=== PATIENT | female | born 1945 | race Caucasian/White ===

== ENCOUNTER 2016-09-20 11:17 | Outpatient (CLI) | payer MEDICARE, OTHER | END 2016-09-20 11:18 | disposition home or self-care (01) | DX: E78.00 Pure hypercholesterolemia, unspecified (principal) ==

== ENCOUNTER 2016-11-21 10:33 | Outpatient (CLI) | payer MEDICARE, OTHER | END 2016-11-21 10:34 | disposition home or self-care (01) | DX: I10 Essential (primary) hypertension (principal) ==

== ENCOUNTER 2016-12-15 14:20 | Outpatient (CLI) | payer MEDICARE, OTHER | END 2016-12-15 14:21 | disposition home or self-care (01) | DX: Z12.31 Encounter for screening mammogram for malignant neoplasm of breast (principal); Z85.3 Personal history of malignant neoplasm of breast ==

== ENCOUNTER 2017-02-01 04:32 | Emergency (ER) | payer MEDICARE, OTHER ==
[2017-02-01] MEDS ORDERED: ONDANSETRON 4 MG/2 ML VIAL IVP STA (04:47)
[2017-02-01] MEDS ORDERED: SODIUM CHLORIDE 0.9% 1,000 ML IV ONE ×3 (04:47→06:46)
[2017-02-01] MEDS ORDERED: ONDANSETRON 4 MG/2 ML VIAL ONE (04:50)
[2017-02-01 05:32] LABS: BASOPHILS % (AUTO) 0.1 %; EOSINOPHILS % (AUTO) 0.1 %; HCT - HEMATOCRIT 39.3 % (37.0-47.0); HGB - HEMOGLOBIN 13.1 g/dL (12.0-16.0); LYMPHOCYTES % (AUTO) 45.7 %; MEAN CORPUSCULAR HEMOGLOBIN 32.3 pg (27.0-31.0); MEAN CORPUSCULAR HGB CONC 33.3 g/dL (32.0-36.0); MEAN PLATELET VOLUME 8.5 fL (7.9-10.8); MONOCYTES % (AUTO) 2.6 %; NEUTROPHILS % (AUTO) 51.5 %; RED BLOOD COUNT 4.06 10^6/uL (4.20-5.40); RED CELL DISTRIBUTION WIDTH 13.9 % (12.0-15.0); UNCORRECTED WHITE BLOOD COUNT 26.9 x10^3/uL; WHITE BLOOD COUNT 26.9 x10^3/uL (4.8-10.8)
[2017-02-01 05:41] LABS: BILIRUBIN,TOTAL 0.5 mg/dL (0.2-1.0); CALCIUM 9.9 mg/dL (8.5-10.3); CREATININE 0.8 mg/dL (0.4-1.0); POTASSIUM 3.6 mmol/L (3.5-5.0); TOTAL PROTEIN 7.1 g/dL (6.7-8.2)
[2017-02-01 05:56] LABS: BAND NEUTROPHILS % (MANUAL) 4 %; LYMPHOCYTES % (MANUAL) 58 %; NEUTROPHILS % (MANUAL) 32 %; PLATELET ESTIMATE, MANUAL NORMAL (130-450,000) (NORMAL); TOTAL CELLS COUNTED 100
[2017-02-01 05:57] LABS: NP AUTO DIFFERENTIAL? YES; NP MAN DIFFERENTIAL? NO
[2017-02-01 06:00] LABS: BILIRUBIN,URINE NEGATIVE (NEGATIVE)
[2017-02-01 06:01] LABS: UA w/ MICROSCOPIC CHARGE YES
[2017-02-01 06:18] LABS: UR CULTURE IF IND NOT INDICATED; WBC,URINE 0-3 /HPF (0-5)
[2017-02-01] MEDS ORDERED: PROMETHAZINE INJ 25 MG in SODIUM CHLORIDE 0.9% 50 ML IV STA (06:32)
[2017-02-01] MEDS ORDERED: MORPHINE 2 MG/ML SYRINGE IVP STA (06:44)
[2017-02-01] MEDS ORDERED: MORPHINE 2 MG/ML SYRINGE ONE (06:46)
[2017-02-01] MEDS ORDERED: SODIUM CHLORIDE 0.9% 50 ML IV ONE (06:46)
[2017-02-01] MEDS ORDERED: PROMETHAZINE 25 MG/1 ML VIAL ONE (06:46)
--- NOTE | 2017-02-01 07:06 | ED Physician Documentation ---
PD HPI NVD - History obtained from History obtained from: Patient, Family - History of Present Illness Timing - onset: Today Timing - details: Abrupt onset, Still present Associated symptoms: Abdominal pain, Other (back pain) Contributing factors: No: Sick contact, Bad food, Recent antibiotics Similar symptoms before: Has not had sx before Recently seen: Not recently seen <BcRizwan C - Last Filed: 02/01/17 07:03> - History obtained from History obtained from: Patient, Family - History of Present Illness Timing - onset: Enter time (1400), Yesterday Timing - duration: Days (1) Timing - details: Gradual onset, Still present Associated symptoms: Loss of appetite, Other (back pain and vomiting) Contributing factors: Other (The patient did eat a new pepper pablano pepper with [employer]). No: Sick contact, Recent antibiotics, Alcohol use Improved by: Meds Worsened by: Eating Similar symptoms before: Has not had sx before Recently seen: Not recently seen <Danish Rojas - Last Filed: 02/01/17 09:09> - Stated complaint Stated Complaint: VOMITING,BACK PAIN - Chief complaint Chief Complaint: General - Additonal information Additional information: Patient is a 71 year old female with a history of anal cancer post resection, and cll, which has never needed treatment who is presenting to the emergency department for nausea and vomiting, with back pain that started today. patient states that the symptoms started earlier today and have just become progressively worse. (Rizwan Yancey) 71 y/o female 5 years out from anal cancer s/p resection and ostomy has developed nausea and vomiting last night after not feeling well during the day yesterday. She had similar foods to always except for the night prior to the onset of symptoms when she had food from [employer] with a [place] pepper that she has not eaten previously. She feels improved after getting IV fluids here. (Danish Rojas) Review of Systems Constitutional: reports: Fatigue. denies: Fever Eyes: denies: Decreased vision Ears: denies: Ear pain Nose: denies: Congestion Throat: denies: Sore throat Cardiac: denies: Chest pain / pressure, Palpitations Respiratory: reports: Cough. denies: Dyspnea GI: reports: Nausea, Vomiting. denies: Abdominal Pain : denies: Dysuria, Frequency Skin: denies: Rash Musculoskeletal: reports: Back pain. denies: Neck pain, Extremity pain Neurologic: denies: Generalized weakness, Focal weakness, Numbness <Danish Rojas - Last Filed: 02/01/17 09:09> PD PAST MEDICAL HISTORY - Social History Does the pt smoke?: No Smoking Status: Never smoker <Rizwan Yancey - Last Filed: 02/01/17 07:03> <Danish Rojas - Last Filed: 02/01/17 09:09> - Present Medications Home Medications: Ambulatory Orders Medication Instructions Recorded Confirmed Aspirin [Adult Low Dose Aspirin EC] 81 mg PO DAILY 02/01/17 02/01/17 Atorvastatin [Lipitor] 10 mg PO DAILY 02/01/17 02/01/17 Azelastine HCl 1 drops EACHEYE DAILY 02/01/17 02/01/17 Cetirizine [ZyrTEC] 10 mg PO DAILY 02/01/17 02/01/17 Levothyroxine Sodium [Synthroid] 88 mcg PO DAILY 02/01/17 02/01/17 Losartan Potassium 25 mg PO DAILY 02/01/17 02/01/17 Promethazine [Phenergan] 25 - 50 mg PO Q6H PRN #10 tab 02/01/17 Triamcinolone Acetonide [Nasacort] 1 spray DAILY 02/01/17 02/01/17 amLODIPine [Norvasc] 5 mg PO DAILY 02/01/17 02/01/17 - Allergies Allergies/Adverse Reactions: Allergies Allergy/AdvReac Type Severity Reaction Status Date / Time estradiol [From Estrace] Allergy Anaphylaxis Verified 02/01/17 05:20 PD ED PE NORMAL - Vitals Vital signs reviewed: Yes (hypertensive ) - General General: Alert and oriented X 3, No acute distress, Well developed/nourished - HEENT HEENT: Atraumatic - Neck Neck: Supple, no meningeal sign - Cardiac Cardiac: RRR, No murmur - Respiratory Respiratory: No respiratory distress, Clear bilaterally - Abdomen Abdomen: Soft, Non tender - Back Back: No CVA TTP, No spinal TTP - Derm Derm: Normal color, Warm and dry, No rash - Extremities Extremities: No deformity, No edema - Neuro Neuro: No motor deficit, No sensory deficit - Psych Psych: Normal mood, Normal affect <BobDanish Britt - Last Filed: 02/01/17 09:09> Results - Rads (name of study) 1 view chest Radiology: Prelim report reviewed (Impression: No radiographic appeared acute abnormality in the chest.), EMP read indepedently, See rad report abdomen and pelvis with Radiology: Prelim report reviewed (Impression: 1. Mildly dilated small bowel throughout the pelvis and right abdomen is suggestive of early/partial small bowel obstruction. 2. Left inferior parastomal hernia containing some dilated loops of bowel, presumably residual colon. This does not appear to be a cause of bowel obstruction. 3. Abnormal angulation of the sacrum is to, compatible with fracture, is new from 2011 but is of uncertain chronicity. Correlate for focal tenderness/symptoms. 4. Mildly distended gallbladder with minimal intrahepatic biliary dilation is uncertain clinical significance.), EMP read indepedently, See rad report <BobDanish Britt - Last Filed: 02/01/17 09:09> - Vitals Vitals: Vital Signs - 24 hr 02/01/17 02/01/17 02/01/17 04:39 06:21 06:59 Temperature 36.5 C 36.5 C Heart Rate 74 78 84 Respiratory 18 16 16 Rate Blood Pressure 173/90 H 155/80 H 164/88 H O2 Saturation 99 100 100 Oxygen O2 Source Room air - Labs Labs: Laboratory Tests 02/01/17 02/01/17 02/01/17 05:20 05:49 05:50 WBC 26.9 H RBC 4.06 L Hgb 13.1 Hct 39.3 MCV 97.0 MCH 32.3 H MCHC 33.3 RDW 13.9 Plt Count 251 MPV 8.5 Neut # Not Reportable Lymph # Not Reportable [place] # Not Reportable Eos # Not Reportable Baso # Not Reportable Absolute Nucleated RBC Not Reportable Total Counted 100 Band Neuts % (Manual) 4 Neutrophils # (Manual) 9.7 H Lymphocytes # (Manual) 15.6 H Monocytes # (Manual) 1.6 H Nucleated RBCs Not Reportable Differential Comment MANUAL DIFFERENTIAL Platelet Estimate NORMAL (130-450,000) RBC Morph Micro Appear NORMAL APPEARANCE Sodium 137 Potassium 3.6 Chloride 98 L Carbon Dioxide 25 Anion Gap 14.0 H BUN 14 Creatinine 0.8 Estimated GFR (MDRD) 71 L Glucose 156 H Lactic Acid Calcium 9.9 Total Bilirubin 0.5 AST 31 ALT 26 Alkaline Phosphatase 75 Total Protein 7.1 Albumin 4.7 Globulin 2.4 Albumin/Globulin Ratio 2.0 Lipase 18 L Urine Color LT. YELLOW Urine Clarity CLOUDY Urine pH 8.0 H Ur Specific [place] 1.015 Urine Protein NEGATIVE Urine Glucose (UA) NEGATIVE Urine Ketones 40 H Urine Occult Blood NEGATIVE Urine Nitrite NEGATIVE Urine Bilirubin NEGATIVE Urine Urobilinogen 0.2 (NORMAL) Ur Leukocyte Esterase NEGATIVE Urine RBC 0-5 Urine WBC 0-3 Ur Squamous Epith Cells NONE SEEN Amorphous Sediment Marked Urine Bacteria None Seen Ur Microscopic Review INDICATED Urine Culture Comments NOT INDICATED 02/01/17 06:09 WBC RBC Hgb Hct MCV MCH MCHC RDW Plt Count MPV Neut # Lymph # [place] # Eos # Baso # Absolute Nucleated RBC Total Counted Band Neuts % (Manual) Neutrophils # (Manual) Lymphocytes # (Manual) Monocytes # (Manual) Nucleated RBCs Differential Comment Platelet Estimate RBC Morph Micro Appear Sodium Potassium Chloride Carbon Dioxide Anion Gap BUN Creatinine Estimated GFR (MDRD) Glucose Lactic Acid 1.3 Calcium Total Bilirubin AST ALT Alkaline Phosphatase Total Protein Albumin Globulin Albumin/Globulin Ratio Lipase Urine Color Urine Clarity Urine pH Ur Specific [place] Urine Protein Urine Glucose (UA) Urine Ketones Urine Occult Blood Urine Nitrite Urine Bilirubin Urine Urobilinogen Ur Leukocyte Esterase Urine RBC Urine WBC Ur Squamous Epith Cells Amorphous Sediment Urine Bacteria Ur Microscopic Review Urine Culture Comments Procedures <Rizwan Yacney - Last Filed: 02/01/17 07:03> - IVC sono (time) 0850 Bedside IVC sono: IVC measures (cm) (1.53), Euvolemia (after hydration here this morning.) <Danish Rojas - Last Filed: 02/01/17 09:09> - Bedside sono Bedside sono by EMP: with the use of bedside ultrasound the gallbladder is imaged and is without obvious stone and is sonographically non-tender. It is folded and mildly distended without wall thickening or pericholecystic fluid. (Danish Rojas) PD MEDICAL DECISION MAKING <Rizwan Yancey - Last Filed: 02/01/17 07:03> - ED course Complexity details: reviewed results, re-evaluated patient, considered differential, d/w patient, d/w family <Danish Rojas - Last Filed: 02/01/17 09:09> - ED course ED course: 71 y/o female with vomiting since midnight is much improved after treatment this morning by Dr. Edmonds. She received IV saline and zofran and phenergan and the phenergan appears to have worked well. She is now adequately hydrated and it appears she has consumed something that has irritated her small intestine and this morning we are blaming temi cadet. She is expected to resolve and we have asked her not to eat this morning and advance diet slowly over the next day. (Danish Rojas) Departure <Rizwan Yancey - Last Filed: 02/01/17 07:03> <Danish Rojas - Last Filed: 02/01/17 09:09> - Departure Disposition: 01 Home, Self Care Clinical Impression: Partial small bowel obstruction, Dehydration Condition: Stable Instructions: ED Nausea Vomiting Follow-Up: Denny Jade MD [Primary Care Provider] - Prescriptions: Promethazine [Phenergan] 25 - 50 mg PO Q6H PRN #10 tab PRN Reason: Nausea / Vomiting
--- NOTE | 2017-02-01 07:46 | CT Preliminary Report ---
Exam: CT Abdomen/Pelvis W/ IMPRESSION: 1. Mildly dilated small bowel throughout the pelvis and right abdomen is suggestive of early/partial small bowel obstruction. 2. Left inferior parastomal hernia contains nondilated loops of bowel, presumably residual colon. Thi s does not appear to be a cause of bowel obstruction. 3. Abnormal angulation of the sacrum at S2, compatible with fracture, is new from 2011 but is of unce rtain chronicity. Correlate for focal tenderness/symptoms. 4. Mildly distended gallbladder with minimal intrahepatic biliary dilatation is of uncertain clinical significance. [facility] SITE ID: [id number]
--- NOTE | 2017-02-01 07:48 | XRAY Preliminary Report ---
Exam: XR Chest 1 View IMPRESSION: No radiographically apparent acute abnormality in the chest. [facility] SITE ID: [id number]
--- NOTE | 2017-02-01 07:49 | CT Report ---
EXAM: CT ABDOMEN AND PELVIS EXAM DATE: 02/01/2017 07:19 AM. CLINICAL HISTORY: Vomiting, leukocytosis, previous anal ca and colectomy. COMPARISONS: Lumbar spine radiography 03/04/2012. TECHNIQUE: Routine helical CT imaging was performed through the abdomen and pelvis. IV contrast: 100 cc Isovue-300. Enteric contrast: No. Reconstructions: Coronal and sagittal. In accordance with CT protocol optimization, one or more of the following dose reduction techniques w ere utilized for this exam: automated exposure control, adjustment of mA and/or KV based on patient s ize, or use of iterative reconstructive technique. FINDINGS: Lung Bases: Minimal bibasilar atelectasis versus scarring; no significant abnormality. The heart size is normal. No pericardial effusion. Presumed surgical clips in the right breast. Liver: 6 mm well-circumscribed hypodense lesion in the anterior left lobe of the liver is too small t o characterize but likely represents a simple cyst. The liver is otherwise within normal limits. Gallbladder/Bile Ducts: The gallbladder is mildly distended. Minimal intrahepatic biliary dilatation. No evidence of extrahepatic ductal dilatation. Spleen: Normal. Pancreas: Normal. Adrenal Glands: Normal. Kidneys: Bilateral hypodense foci are too small to characterize but likely represent simple cysts. Th e kidneys are otherwise within normal limits. Peritoneal Cavity/Bowel: Status post partial colectomy. Left inferior parastomal hernia contains mult iple loops of nondilated bowel with formed stool, presumably residual colon. Mildly dilated loops of small bowel with air-fluid levels are seen in the right abdomen and in the pelvis measuring up to 3.3 cm in diameter. A possible transition point (axial image 39) is noted anterior to the inferior pole of the right kidney. No lymphadenopathy. Pelvic Organs: The uterus appears surgically absent. There is trace free fluid in the posterior pelvi s (e.g. axial image 72) but no large ascites and no abscess or other fluid collection. Vasculature: Mild atherosclerosis without aneurysm. Bones: Anterior angulation of the sacrum centered at S2 is age indeterminate but new from February 2012. Mild degenerative change throughout the visualized spine. Other: None. IMPRESSION: 1. Mildly dilated small bowel throughout the pelvis and right abdomen is suggestive of early/partial small bowel obstruction. 2. Left inferior parastomal hernia contains nondilated loops of bowel, presumably residual colon. Thi s does not appear to be a cause of bowel obstruction. 3. Abnormal angulation of the sacrum at S2, compatible with fracture, is new from 2012 but is of unce rtain chronicity. Correlate for focal tenderness/symptoms. 4. Mildly distended gallbladder with minimal intrahepatic biliary dilatation is of uncertain clinical significance. [facility] Referring Provider Line: [phone] SITE ID: [id number]
--- NOTE | 2017-02-01 07:51 | XRAY Report ---
EXAM: CHEST RADIOGRAPHY EXAM DATE: 02/01/2017 07:26 AM. CLINICAL HISTORY: Fever, leukocytosis. COMPARISON: None. TECHNIQUE: 1 view. 2 images are provided. FINDINGS: Lungs/Pleura: No focal opacities evident. No pleural effusion. No pneumothorax. Mediastinum: Within exam limitations, cardiomediastinal contour is normal. Aortic atherosclerosis. Other: Surgical clips in the right breast. IMPRESSION: No radiographically apparent acute abnormality in the chest. [facility] Referring Provider Line: [phone] SITE ID: [id number]
[2017-02-01 09:16] VITALS: BP 124/66
== END 2017-02-01 09:22 | disposition home or self-care (01) ==
LOC: ED 04:32
DX: K56.60 Unspecified intestinal obstruction (principal); E86.0 Dehydration; Z85.048 Personal history of other malignant neoplasm of rectum, rectosigmoid junction, and anus; Z90.49 Acquired absence of other specified parts of digestive tract; Z79.82 Long term (current) use of aspirin
CPT/HCPCS: 36415; 71010; 74177; 80053; 81001; 83605; 83690; 85025; 87040; 96374; 96375; 99283; 99285; J7040; 81003; 87086

== ENCOUNTER 2017-08-14 14:57 | Outpatient (CLI) | payer MEDICARE, OTHER ==
--- NOTE | 2017-08-17 12:09 | DEXA Report ---
DEXA SCAN: 08/14/2017 CLINICAL INDICATION: Postmenopausal. TECHNIQUE: Dual energy x-ray absorptiometry (DXA) was performed on a [employer] system. Regions measured are the AP spine, femoral neck, and, if needed, forearm. COMPARISON: None. In accordance with the International Society for Clinical Densitometry (ISCD) guidelines, data from previous exams may be reanalyzed using current recommendations and techniques. This is done to allow a more accurate basis for comparison with the current study. FINDINGS: The data for the lumbar spine is as follows: REGION BMD (g/cm/cm) T-SCORE Z-SCORE L1 0.837 -2.4 -0.7 L2 0.830 -3.1 -1.4 L3 0.972 -1.9 -0.2 L4 0.947 -2.1 -0.4 TOTAL 0.903 -2.3 -0.6 NOTE: All evaluable vertebrae are used for classification. The data for the hip is as follows: REGION BMD (g/cm/cm) T-SCORE Z-SCORE Neck 0.698 -2.4 -0.7 0.729 -2.2 -0.7 IMPRESSION: THE WHO CLASSIFICATION BASED ON THE INTERNATIONAL REFERENCE STANDARD IS OSTEOPENIA. THE FRACTURE RISK IS INCREASED. RECOMMENDATION: Patients with diagnosis of osteoporosis or osteopenia should have regular bone mineral density assessment. For those eligible for Medicare, routine testing is allowed once every 2 years. Testing frequency can be increased for patients who have rapidly progressing disease or for those who are receiving medical therapy to restore bone mass. COMMENT: World Health Organization (WHO) definitions for osteoporosis and osteopenia: NORMAL BMD: T-score at 1.0 or higher, fracture risk is low. OSTEOPENIA BMD: T-score between 1.0 and -2.5, fracture risk is increased. OSTEOPOROSIS BMD: T-score at 2.5 or lower, fracture risk high. National Osteoporosis Foundation recommends: 1. Obtain adequate dietary calcium (at least 1200 mg per day) and vitamin D (400 -800 international units per day). 2. Participate, as appropriate, in regular weightbearing and muscle- strengthening exercise. 3. Avoid tobacco use and reduce alcohol and caffeine intake. 4. For more detailed information see the website at www.NOF.org. TAE/ TD: 08/16/2017 10:20 DAVID
== END 2017-08-14 14:58 | disposition home or self-care (01) ==
LOC: DI 14:57
PROVIDERS: ATTEND Obstetrics & Gynecology
DX: M85.80 Other specified disorders of bone density and structure, unspecified site (principal); M81.0 Age-related osteoporosis without current pathological fracture
CPT/HCPCS: 77080

== ENCOUNTER 2017-09-27 08:12 | Outpatient (CLI) | payer MEDICARE, OTHER ==
[2017-09-27 12:30] LABS: BASOPHILS # (AUTO) 0.1 10^3/uL (0.0-0.1); BASOPHILS % (AUTO) 0.5 %; EOSINOPHILS # (AUTO) 0.4 10^3/uL (0.0-0.7); EOSINOPHILS % (AUTO) 2.5 %; HGB - HEMOGLOBIN 11.8 g/dL (12.0-16.0); LYMPHOCYTES # (AUTO) 10.4 10^3/uL (1.5-3.5); LYMPHOCYTES % (AUTO) 68.5 %; MEAN CORPUSCULAR HEMOGLOBIN 31.9 pg (27.0-31.0); MEAN CORPUSCULAR HGB CONC 34.9 g/dL (32.0-36.0); MEAN CORPUSCULAR VOLUME 91.3 fL (81.0-99.0); MEAN PLATELET VOLUME 8.8 fL (7.9-10.8); MONOCYTES # (AUTO) 0.4 10^3/uL (0.0-1.0); MONOCYTES % (AUTO) 2.9 %; NEUTROPHILS # (AUTO) 3.9 10^3/uL (1.5-6.6); NEUTROPHILS % (AUTO) 25.6 %; PLT - PLATELET COUNT 251 10^3/uL (130-450); RED CELL DISTRIBUTION WIDTH 14.9 % (12.0-15.0); WHITE BLOOD COUNT 15.1 x10^3/uL (4.8-10.8)
[2017-09-27 12:46] LABS: ALBUMIN/GLOBULIN RATIO 1.7 (1.0-2.2); ALKALINE PHOSPHATASE 62 IU/L (42-121); ALT ALANINE AMINOTRANSFERASE 25 IU/L (10-60); AST ASPARTATE AMINOTRANSFERASE 27 IU/L (10-42); BILIRUBIN,TOTAL 0.4 mg/dL (0.2-1.0); BUN - BLOOD UREA NITROGEN 15 mg/dL (6-20); CALCIUM 9.3 mg/dL (8.5-10.3); CARBON DIOXIDE - CO2 24 mmol/L (21-32); CHLORIDE 104 mmol/L (101-111); CHOLESTEROL 168 mg/dL; CREATININE 0.9 mg/dL (0.4-1.0); GFR - MDRD 62 (>89); GLUCOSE 91 mg/dL (70-100); HDL CHOLESTEROL 85 mg/dL; LDL CHOLESTEROL,CALCULATED 71 mg/dL; LDL/HDL RATIO 0.8 (<4.4); SODIUM 135 mmol/L (135-145); TOTAL PROTEIN 6.4 g/dL (6.7-8.2); VLDL CHOLESTEROL 12 mg/dL
[2017-09-27 12:49] LABS: DIFFERENTIAL COMMENT MANUAL=AUTO DIFF; PLATELET ESTIMATE, MANUAL NORMAL (130-450,000) (NORMAL); PLATELET MORPHOLOGY NORMAL APPEARANCE (NORMAL); RBC MORPHOLOGY (MULTIPLE) NORMAL APPEARANCE (NORMAL)
== END 2017-09-27 08:13 | disposition home or self-care (01) ==
LOC: LAB.F 08:12
PROVIDERS: ATTEND Family Medicine
DX: E78.00 Pure hypercholesterolemia, unspecified (principal); I10 Essential (primary) hypertension; E03.9 Hypothyroidism, unspecified; E55.9 Vitamin D deficiency, unspecified
CPT/HCPCS: 36415; 80053; 80061; 82306; 83721; 84443; 85025

== ENCOUNTER 2017-12-26 11:50 | Outpatient (CLI) | payer MEDICARE, OTHER ==
--- NOTE | 2017-12-27 13:42 | Mammography Report ---
DIGITAL SCREENING MAMMOGRAM: 12/26/2017 CLINICAL INDICATION: A 72-year-old nulliparous patient with personal history of right breast cancer for screening. COMPARISON: 11/2016, 10/2015, 10/2014, 10/2013, 10/2012, 10/2011, 05/2010, 10/2009. TECHNIQUE: Routine CC and MLO projections were obtained of the breasts. FINDINGS: The breasts demonstrate scattered fibroglandular densities bilaterally. Postoperative and posttreatment changes in the right breast are stable. Coarse and punctate, typically benign calcifications are present. No suspicious masses, clustered microcalcifications, or regions of architectural distortion are identified. IMPRESSION: BENIGN FINDINGS. RECOMMENDATION: Routine annual screening unless otherwise clinically indicated. BI-RADS CATEGORY 2 - BENIGN FINDINGS. STANDARD QUALIFYING STATEMENTS: 1. This examination was reviewed with the aid of Computer-Aided Detection (CAD). 2. A negative or benign imaging report should not delay biopsy if clinically suspicious findings are present. Consider surgical consultation if warranted. More than 5% of cancers are not identified by imaging. 3. Dense breasts may obscure an underlying neoplasm. TD: 12/27/2017 13:40
== END 2017-12-26 23:59 | disposition home or self-care (01) ==
LOC: DI.S 11:50
PROVIDERS: ATTEND Family Medicine
DX: Z12.31 Encounter for screening mammogram for malignant neoplasm of breast (principal); Z85.3 Personal history of malignant neoplasm of breast
CPT/HCPCS: 77067

== ENCOUNTER 2018-05-09 10:18 | Outpatient (CLI) | payer MEDICARE, OTHER | END 2018-05-09 10:19 | disposition home or self-care (01) | LOC: LAB.F 10:18 | PROVIDERS: ATTEND Internal Medicine | DX: E03.9 Hypothyroidism, unspecified (principal) | CPT/HCPCS: 36415; 84443 ==

== ENCOUNTER 2018-12-23 10:54 | Emergency (ER) | payer MEDICARE, OTHER ==
[2018-12-23 12:07] LABS: GLUCOSE, URINE (UA) NEGATIVE (NEGATIVE); KETONES,URINE (UA) 40 mg/dL (NEGATIVE); LEUKOCYTE ESTERASE, URINE NEGATIVE (NEGATIVE); NITRITE,URINE NEGATIVE (NEGATIVE); OCCULT BLOOD,URINE NEGATIVE (NEGATIVE); PROTEIN,URINE TRACE mg/dL (NEGATIVE); UROBILINOGEN,URINE 0.2 (NORMAL) E.U./dL (NORMAL)
[2018-12-23 12:10] LABS: BILIRUBIN,URINE NEGATIVE (NEGATIVE); CLARITY,URINE SL. CLOUDY (CLEAR); ICTOTEST,URINE NEGATIVE
[2018-12-23 12:19] LABS: BACTERIA,URINE Few /HPF (None Seen); RBC,URINE 0-5 /HPF (0-5); SQUAMOUS EPITHELIAL CELL,UR MANY Squamous (<= Few)
[2018-12-23 12:20] LABS: MUCUS,URINE Moderate Strands
[2018-12-23] MEDS ORDERED: SODIUM CHLORIDE 0.9% 1,000 ML IV ONE (12:26)
[2018-12-23 12:33] LABS: BASOPHILS % (AUTO) 0.2 %; HGB - HEMOGLOBIN 14.3 g/dL (12.0-16.0); LYMPHOCYTES % (AUTO) 66.1 %; MEAN CORPUSCULAR HEMOGLOBIN 31.6 pg (27.0-31.0); MEAN CORPUSCULAR VOLUME 95.8 fL (81.0-99.0); MONOCYTES % (AUTO) 2.6 %; NEUTROPHILS % (AUTO) 31.1 %; PLT - PLATELET COUNT 258 10^3/uL (130-450); RED BLOOD COUNT 4.52 10^6/uL (4.20-5.40); RED CELL DISTRIBUTION WIDTH 15.6 % (12.0-15.0); WHITE BLOOD COUNT 28.1 x10^3/uL (4.8-10.8)
[2018-12-23] MEDS ORDERED: LACTATED RINGERS 1,000 ML IV STA (12:34)
[2018-12-23] MEDS ORDERED: KETOROLAC 15 MG/ML VIAL IVP STA (12:34)
[2018-12-23] MEDS ORDERED: ONDANSETRON 4 MG/2 ML VIAL IVP STA ×2 (12:34→14:40)
--- NOTE | 2018-12-23 12:36 | ED Physician Documentation ---
PD HPI NVD - Stated complaint Stated Complaint: V/D - Chief complaint Chief Complaint: Abd Pain - History obtained from History obtained from: Patient, Family - History of Present Illness Timing - onset: Other (73-year-old woman with history of CLL and anal cancer with ostomy in place, no recent chemotherapy presents with 2 days of vomiting and diarrhea with crampy abdominal pain. No blood from either end. She is been trying to orally rehydrate at home but still is vomiting. She denies high fevers but had a temperature of 99.5 yesterday which is high for her. No recent travel or sick contacts.) Review of Systems Constitutional: reports: Fatigue. denies: Fever, Chills Nose: denies: Rhinorrhea / runny nose, Congestion Respiratory: denies: Dyspnea PD PAST MEDICAL HISTORY - Past Medical History Past Medical History: Yes Cardiovascular: Hypertension, High cholesterol Respiratory: None Neuro: None Endocrine/Autoimmune: HyPOthyroidism GI: Hemorrhoids, Other LAUNCH MANAGER: None : None HEENT: None Psych: None Musculoskeletal: None Derm: None Other Past Medical History: chronic lymphoctyic leukemia - Past Surgical History Past Surgical History: Yes /LAUNCH MANAGER: Oophrectomy - Present Medications Home Medications: Ambulatory Orders Medication Instructions Recorded Confirmed Atorvastatin [Lipitor] 10 mg PO DAILY 02/01/17 12/23/18 Azelastine HCl 1 drops EACHEYE DAILY 02/01/17 12/23/18 Cetirizine [ZyrTEC] 10 mg PO DAILY 02/01/17 12/23/18 Levothyroxine Sodium [Synthroid] 88 mcg PO DAILY 02/01/17 12/23/18 Losartan Potassium 25 mg PO DAILY 02/01/17 12/23/18 Triamcinolone Acetonide [Nasacort] 1 spray DAILY 02/01/17 12/23/18 amLODIPine [Norvasc] 5 mg PO DAILY 02/01/17 12/23/18 Dicyclomine [Bentyl] 20 mg PO QID PRN #15 capsule 12/23/18 Metoclopramide [Reglan] 10 mg PO Q6H PRN #20 tablet 12/23/18 Ondansetron Odt [Zofran] 4 mg TL Q6H PRN #20 tablet 12/23/18 - Allergies Allergies/Adverse Reactions: Allergies Allergy/AdvReac Type Severity Reaction Status Date / Time estradiol [From Estrace] Allergy Anaphylaxis Verified 12/23/18 11:00 - Social History Does the pt smoke?: No Smoking Status: Never smoker Does the pt drink ETOH?: No Does the pt have substance abuse?: No - Immunizations Immunizations are current?: Yes - POLST Patient has POLST: No PD ED PE NORMAL - Vitals Vital signs reviewed: Yes - General General: Alert and oriented X 3, No acute distress - HEENT HEENT: Pharynx benign - Neck Neck: Supple, no meningeal sign, No bony TTP - Cardiac Cardiac: RRR, No murmur - Respiratory Respiratory: No respiratory distress, Clear bilaterally - Abdomen Abdomen: Other (Slightly diminished but not absent bowel tones, no tenderness, empty ostomy bag just to the left of midline.) - Derm Derm: No rash - Extremities Extremities: No edema, No calf tenderness / cord - Neuro Neuro: Alert and oriented X 3, Normal speech - Psych Psych: Normal mood, Normal affect Results - Vitals Vitals: Vital Signs - 24 hr 12/23/18 12/23/18 12/23/18 10:59 13:08 14:13 Temperature 37.3 C 36.7 C Heart Rate 89 79 87 Heart Rate [ Sitting] Heart Rate [ Standing] Heart Rate [ Supine] Respiratory 17 16 16 Rate Blood Pressure 174/89 H 179/84 H 178/91 H Blood Pressure [Sitting] Blood Pressure [Standing] Blood Pressure [Supine] O2 Saturation 100 98 98 12/23/18 15:43 Temperature Heart Rate Heart Rate [ 82 Sitting] Heart Rate [ 93 Standing] Heart Rate [ 78 Supine] Respiratory Rate Blood Pressure Blood Pressure 174/84 H [Sitting] Blood Pressure 162/91 H [Standing] Blood Pressure 172/84 H [Supine] O2 Saturation Oxygen O2 Source Room air - Labs Labs: Laboratory Tests 12/23/18 12/23/18 12/23/18 12:02 12:14 13:03 WBC 28.1 H RBC 4.52 Hgb 14.3 Hct 43.3 MCV 95.8 MCH 31.6 H MCHC 33.0 RDW 15.6 H Plt Count 258 MPV 9.0 Neut # (Auto) Not Reportable Lymph # (Auto) Not Reportable [place] # (Auto) Not Reportable Eos # (Auto) Not Reportable Baso # (Auto) Not Reportable Absolute Nucleated RBC Not Reportable Total Counted 100 Band Neuts % (Manual) 0 Abnorm Lymph % (Manual) 0 Nucleated RBC % Not Reportable Neutrophils # (Manual) 7.0 H Lymphocytes # (Manual) 20.2 H Monocytes # (Manual) 0.6 Eosinophils # (Manual) 0.0 Basophils # (Manual) 0.3 H Differential Comment MANUAL DIFFERENTIAL Platelet Estimate NORMAL (130-450,000) Platelet Morphology NORMAL APPEARANCE RBC Morph Micro Appear 1+ ANISOCYTOSIS Sodium 134 L Potassium 3.5 Chloride 102 Carbon Dioxide 22 Anion Gap 10.0 BUN 20 Creatinine 0.7 Estimated GFR (MDRD) 82 L Glucose 111 H Calcium 9.1 Total Bilirubin 1.0 AST 29 ALT 22 Alkaline Phosphatase 67 Total Protein 6.4 L Albumin 3.9 Globulin 2.5 Albumin/Globulin Ratio 1.6 Lipase 20 L Urine Color YELLOW Urine Clarity SL. CLOUDY Urine pH 6.0 Ur Specific [place] >=1.030 H Urine Protein TRACE Urine Glucose (UA) NEGATIVE Urine Ketones 40 H Urine Occult Blood NEGATIVE Urine Nitrite NEGATIVE Urine Bilirubin NEGATIVE Urine Urobilinogen 0.2 (NORMAL) Ur Leukocyte Esterase NEGATIVE Urine RBC 0-5 Urine WBC 0-3 Ur Squamous Epith Cells MANY Squamous H Urine Bacteria Few Urine Mucus Moderate Strands Ur Microscopic Review INDICATED Urine Culture Comments NOT INDICATED PD MEDICAL DECISION MAKING - ED course ED course: This is a 73-year-old woman with history of ostomy who presents with vomiting and diarrhea and evidence of dehydration with acute anemia. Her labs are notable for white count of 28,000 but she has CLL and the lymphocytic predominance suggest this is a manifestation of her CLL as opposed to an acute process. She says that she always has a significant leukocytosis and this is not new. Her electro lites are unremarkable and her abdominal examination is benign. She was administered 2 L of IV fluids here with improvement, Zofran did not help too much with her nausea but she did have help more with Reglan. She was able to pass a p.o. challenge and feeling better. She remained nontender on reevaluation prior to dischg. Departure - Departure Disposition: 01 Home, Self Care Clinical Impression: Gastroenteritis Vomiting Qualifiers: Vomiting type: unspecified Vomiting Intractability: non-intractable Nausea presence: with nausea Qualified Code(s): R11.2 - Nausea with vomiting, unspecified Abdominal pain Qualifiers: Abdominal location: generalized Qualified Code(s): R10.84 - Generalized abdominal pain Diarrhea Qualifiers: Diarrhea type: presumed infectious Qualified Code(s): R19.7 - Diarrhea, unspecified Condition: Good Record reviewed to determine appropriate education?: Yes Instructions: ED Gastroenteritis Viral Prescriptions: Dicyclomine [Bentyl] 20 mg PO QID PRN #15 capsule PRN Reason: Abdominal Pain Metoclopramide [Reglan] 10 mg PO Q6H PRN #20 tablet PRN Reason: nausea or headache Ondansetron Odt [Zofran] 4 mg TL Q6H PRN #20 tablet PRN Reason: Nausea / Vomiting Comments: Continue slow oral fluid hydration. Return if worse or if not better in 24 hours or for any new symptoms. Follow-up with your doctor, next available appointment. Your blood pressure was elevated today on check into the emergency department. This does not mean that you have hypertension, it is a common phenomenon to come to the emergency department and have elevated blood pressure. I recommend that you see your primary care physician within the week to have it rechecked when you are feeling better.
[2018-12-23 12:40] LABS: ABNORMAL LYMPHS % (MANUAL) 0 %; BAND NEUTROPHILS % (MANUAL) 0 %
[2018-12-23 12:51] LABS: BASOPHILS # (MANUAL) 0.3 10^3/uL (0-0.1); BASOPHILS % (MANUAL) 1 %; LYMPHOCYTES # (MANUAL) 20.2 10^3/uL (1.5-3.5); LYMPHOCYTES % (MANUAL) 72 %; MONOCYTES # (MANUAL) 0.6 10^3/uL (0.0-1.0); NEUTROPHILS % (MANUAL) 25 %
[2018-12-23 12:52] LABS: DIFFERENTIAL COMMENT MANUAL DIFFERENTIAL; PLATELET ESTIMATE, MANUAL NORMAL (130-450,000) (NORMAL); PLATELET MORPHOLOGY NORMAL APPEARANCE (NORMAL); RBC MORPHOLOGY (MULTIPLE) 1+ ANISOCYTOSIS (NORMAL)
[2018-12-23] MEDS: LOPERAMIDE 2 MG CAPSULE PO STA ×2 (12:52→12:54)
[2018-12-23 13:42] LABS: ALBUMIN 3.9 g/dL (3.2-5.5); ALBUMIN/GLOBULIN RATIO 1.6 (1.0-2.2); CALCIUM 9.1 mg/dL (8.5-10.3); CREATININE 0.7 mg/dL (0.4-1.0); TOTAL PROTEIN 6.4 g/dL (6.7-8.2)
[2018-12-23] MEDS ORDERED: DICYCLOMINE 10 MG CAPSULE PO STA (14:15)
[2018-12-23 15:45] VITALS: BP 172/84
[2018-12-23] MEDS ORDERED: METOCLOPRAMIDE 10 MG/2 ML VIAL IVP STA (15:56)
[2018-12-23] MEDS ORDERED: METOCLOPRAMIDE 10 MG TABLET PO STA (16:58)
[2018-12-23] MEDS ORDERED: ONDANSETRON ODT 4 MG Prepack 2 TL STA (16:58)
== END 2018-12-23 17:11 | disposition home or self-care (01) ==
LOC: ED 10:54
DX: K52.9 Noninfective gastroenteritis and colitis, unspecified (principal); R10.84 Generalized abdominal pain; I10 Essential (primary) hypertension; C21.0 Malignant neoplasm of anus, unspecified; C91.10 Chronic lymphocytic leukemia of B-cell type not having achieved remission; E03.9 Hypothyroidism, unspecified; E78.00 Pure hypercholesterolemia, unspecified; E86.0 Dehydration; D64.9 Anemia, unspecified; Z93.3 Colostomy status
CPT/HCPCS: 36415; 80053; 81001; 83690; 85025; 96361; 96374; 96375; 96376; 99283; 99284; A9270; J2765; J7120; 81003; 87086

== ENCOUNTER 2019-02-05 13:06 | Outpatient (CLI) | payer MEDICARE, OTHER ==
--- NOTE | 2019-02-05 14:13 | Ultrasound Report ---
Reason: EDEMA Procedure Date: 02/05/2019 Accession Number: [id number] / [id number] Procedure: US - Duplex Ext Veins Right CPT Code: FULL RESULT: EXAM: RIGHT LOWER EXTREMITY VENOUS ULTRASOUND EXAM DATE: 02/05/2019 01:50 PM. CLINICAL HISTORY: Right leg edema. COMPARISON: None. TECHNIQUE: Real-time sonographic vascular imaging was performed by the sales representative health insurance through the lower extremity utilizing both color-flow and Doppler spectral analysis. Multiple account services representative static images were saved for review. FINDINGS: Common Femoral Vein (CFV): Normal. CFV-GSV Junction: Normal. Profunda Femoral Vein (PFV): Normal. Femoral Vein (FV) Prox: Normal. Femoral Vein (FV) Mid: Normal. Femoral Vein (FV) Dist: Normal. Popliteal Vein: Normal. Posterior Tibial Veins: Normal. Peroneal Veins: Normal. Contralateral Side CFV: Normal. Other: None. IMPRESSION: No evidence for deep venous thrombosis. RADIA
== END 2019-02-05 13:07 | disposition home or self-care (01) ==
LOC: DI 13:06
PROVIDERS: ATTEND Internal Medicine
DX: R60.9 Edema, unspecified (principal)

== ENCOUNTER 2019-02-19 14:48 | Outpatient (CLI) | payer MEDICARE, OTHER ==
--- NOTE | 2019-02-20 09:07 | Mammography Report ---
Reason: SCREENING FOR BREAST CANCER Procedure Date: 02/19/2019 Accession Number: [id number] / [id number] Procedure: BREANN - Screening Mammo w/Adam CPT Code: FULL RESULT: EXAM: Screening Mammo w/Adam DATE: 02/19/2019 3:31 PM CLINICAL HISTORY: Screening encounter. History of nulliparity and personal history of colon cancer as well as breast cancer status post lumpectomy of the right breast in 2000. TECHNIQUE: (B) - Bilateral CC and MLO views were obtained. COMPARISON: 12/26/2017 through 11/17/2014. PARENCHYMAL PATTERN: (A) - The breast(s) demonstrate(s) scattered fibroglandular densities. FINDINGS: Postlumpectomy changes of the right breast are again noted. In the right lower outer breast 4.3 cm deep to the nipple is a mildly irregularly marginated hyperdense nodule which demonstrates increasing density over time and shows development of fine calcifications, previously present is a focal asymmetry, best seen on right MLO 3-D image 15 and right 3-D cc image 15. This requires additional clarification by spot magnification views and ultrasound of the right breast. There are no suspicious masses, calcifications, or areas of distortion in the left breast. IMPRESSION: Incomplete examination. BI-RADS category 0. RECOMMENDATION: (ADDMU) - Additional views using both Mammography and Ultrasound recommended. Right breast spot magnification views and ultrasound. BI-RADS CATEGORY: (0) - Incomplete Examination - need additional evaluation. STANDARD QUALIFYING STATEMENTS: 1. This examination was not reviewed with the aid of Computer-Aided Detection (CAD). 2. A negative or benign imaging report should not preclude biopsy if clinically suspicious findings are present. 3. Dense breasts may obscure an underlying neoplasm. 4. This examination was reviewed with the aid of 3D breast imaging (tomosynthesis).
== END 2019-02-19 14:49 | disposition home or self-care (01) ==
LOC: DI 14:48
DX: Z12.31 Encounter for screening mammogram for malignant neoplasm of breast (principal); R92.8 Other abnormal and inconclusive findings on diagnostic imaging of breast; Z85.3 Personal history of malignant neoplasm of breast
CPT/HCPCS: 77063; 77067

== ENCOUNTER 2019-03-04 09:35 | Outpatient (CLI) | payer MEDICARE, OTHER ==
--- NOTE | 2019-03-04 12:24 | Mammography Report ---
Reason: ABNORMAL MAMMOGRAM Procedure Date: 03/04/2019 Accession Number: [id number] / [id number] Procedure: BREANN - Diag Special Views Dig RT CPT Code: FULL RESULT: EXAM: Diag Special Views Dig RT DATE: 03/04/2019 10:07 AM CLINICAL HISTORY: Diagnostic examination. The patient is recalled from screening for a right breast nodule. TECHNIQUE: (R) - Right right spot magnified CC, spot magnified MLO and right ML images are obtained. Focused right breast ultrasound is performed. COMPARISON: 02/19/2019 through 11/17/2014. PARENCHYMAL PATTERN: (A) - The breast(s) demonstrate(s) scattered fibroglandular densities. FINDINGS: Postsurgical changes in the right breast are again seen. The nodule in the right lateral breast, 4.4 cm from the nipple persists and demonstrates a previously suspected calcifications on magnification views, 0.6 mm and well circumscribed with indeterminate calcifications. Focused right breast ultrasound is performed which demonstrates a well-circumscribed wider than tall nodule 8:00 position and 4 cm from the nipple with internal calcifications which is internally isoechoic and corresponds to the mammographic finding, appearance is probably benign. There are no suspicious masses, calcifications, or areas of distortion. IMPRESSION: Probably Benign. BI-RADS category 3. RECOMMENDATION: (6MOS) - Recommend 6 month follow-up exam. Ultrasound and mammography. BI-RADS CATEGORY: (3) - Probably Benign. STANDARD QUALIFYING STATEMENTS: 1. This examination was not reviewed with the aid of Computer-Aided Detection (CAD). 2. A negative or benign imaging report should not preclude biopsy if clinically suspicious findings are present. 3. Dense breasts may obscure an underlying neoplasm. 4. This examination was reviewed with the aid of 3D breast imaging (tomosynthesis).
== END 2019-03-04 09:36 | disposition home or self-care (01) ==
LOC: DI 09:35
PROVIDERS: ATTEND Internal Medicine
DX: N63.10 Unspecified lump in the right breast, unspecified quadrant (principal); R92.8 Other abnormal and inconclusive findings on diagnostic imaging of breast
CPT/HCPCS: 76642; 77065; G0279

== ENCOUNTER 2019-10-14 07:18 | Outpatient (CLI) | payer MEDICARE, OTHER ==
[2019-10-14 15:49] LABS: CHOL/HDL RATIO 1.9 (<4.4); CHOLESTEROL 171 mg/dL; HDL CHOLESTEROL 90 mg/dL; LDL CHOLESTEROL,CALCULATED 72 mg/dL; LDL/HDL RATIO 0.8 (<4.4); VLDL CHOLESTEROL 9 mg/dL
== END 2019-10-14 07:19 | disposition home or self-care (01) ==
LOC: LAB.S 07:18
PROVIDERS: ATTEND Internal Medicine
DX: E78.5 Hyperlipidemia, unspecified (principal); E03.9 Hypothyroidism, unspecified
CPT/HCPCS: 36415; 80061; 83721; 84443

== ENCOUNTER 2019-10-15 10:39 | Outpatient (CLI) | payer MEDICARE, OTHER ==
--- NOTE | 2019-10-15 13:02 | Mammography Report ---
Reason: DIAG MAMMO - 6 MONTH F U Procedure Date: 10/15/2019 Accession Number: [id number] / [id number] Procedure: BREANN - Diagnostic Dig RT CPT Code: Final Report FULL RESULT: EXAM: Diagnostic Dig RT DATE: 10/15/2019 11:20 AM CLINICAL HISTORY: Diagnostic examination. Follow-up of right breast nodule with calcifications. TECHNIQUE: (R) - Right CC and MLO as well as LM and spot magnified CC and spot magnified LM images are obtained. Focused right breast ultrasound is performed. COMPARISON: 03/04/2019 through 11/04/2009. PARENCHYMAL PATTERN: (A) - The breast(s) demonstrate(s) scattered fibroglandular densities. FINDINGS: Postsurgical changes in the right breast are again seen. The partially obscured relatively isodense nodule containing calcifications is mammographically stable on LM image 13 and CC image 14. 5 cm from the nipple in the lateral central right breast, 9:00 position. Focused right breast ultrasound demonstrates no interval change in the wider than tall well circumscribed hypoechoic 0.6 cm nodule containing internal calcifications by ultrasound at the sonographic 8:00 position 4 cm from the nipple, probably benign. There are no suspicious masses, calcifications, or areas of distortion. IMPRESSION: Probably Benign. BI-RADS category 3. RECOMMENDATION: (6MOS) - Recommend 6 month follow-up exam. Mammography and ultrasound at the time of annual left breast screening exam. BI-RADS CATEGORY: (3) - Probably Benign. STANDARD QUALIFYING STATEMENTS: 1. This examination was not reviewed with the aid of Computer-Aided Detection (CAD). 2. A negative or benign imaging report should not preclude biopsy if clinically suspicious findings are present. 3. Dense breasts may obscure an underlying neoplasm. 4. This examination was reviewed with the aid of 3D breast imaging (tomosynthesis).
== END 2019-10-15 10:40 | disposition home or self-care (01) ==
LOC: DI 10:39
PROVIDERS: ATTEND Internal Medicine
DX: N63.15 Unspecified lump in the right breast, overlapping quadrants (principal)
CPT/HCPCS: 76642

== ENCOUNTER 2020-06-03 10:02 | Outpatient (CLI) | payer MEDICARE, OTHER ==
--- NOTE | 2020-06-04 14:13 | Mammography Report ---
BILATERAL DIGITAL DIAGNOSTIC MAMMOGRAM 3D/2D: 06/03/2020 CLINICAL: Patient returns for magnification views of microcalcifications in the right breast. Comparison is made to exams dated: 10/15/2019 mammogram, 10/15/2019 ultrasound, 03/04/2019 ultrasound, mammogram, 02/19/2019 mammogram, and 12/15/2016 mammogram - [facility]. The tissue of both breasts is predominantly fatty. There are grouped fine calcifications in the right breast at 6 o'clock middle depth. These are incre ased in number. No other significant masses, calcifications, or other findings are seen in either breast. IMPRESSION: SUSPICIOUS OF MALIGNANCY The grouped fine calcifications in the right breast are suspicious of malignancy. A stereotactic bio psy is recommended. This exam was interpreted at Station ID: [id number]. NOTE: For mammograms, a report in lay terms will be sent to the patient. Approximately 15% of breast malignancies will not be visualized mammographically. In the management of a palpable breast mass, a negative mammogram must not discourage biopsy of a clinically suspicious lesion. Electronically Signed By: Tray Garcia M.D., jr/chelsey:06/03/2020 12:20:41 ACR BI-RADS Category 4: Suspicious abnormality 3344F PARENCHYMAL PATTERN: (F) - The breast(s) demonstrate(s) diffuse fatty replacement. BI-RADS CATEGORY: (4) - 4 None [id number] Immediate follow-up LATERALITY: ()
== END 2020-06-03 10:03 | disposition home or self-care (01) ==
LOC: DI 10:02
PROVIDERS: ATTEND Internal Medicine
DX: R92.8 Other abnormal and inconclusive findings on diagnostic imaging of breast (principal)
CPT/HCPCS: 77066

== ENCOUNTER 2020-06-23 08:46 | Outpatient (CLI) | payer MEDICARE, OTHER ==
[2020-06-23] MEDS ORDERED: BUFFERED LIDOCAINE 10 ML SYRINGE ONE (08:56)
[2020-06-23] MEDS ORDERED: LIDOCAINE 1%-EPI 1:100000 20 ML MDV ONE (08:56)
[2020-06-23] MEDS ORDERED: BUFFERED LIDOCAINE 10 ML SYRINGE IU ONE (10:15)
[2020-06-23] MEDS ORDERED: LIDOCAINE 1%-EPI 1:100000 20 ML MDV SUBQ ONE (10:16)
--- NOTE | 2020-06-30 07:54 | Mammography Report ---
DIGITAL TOMOGRAPHIC MAMMOGRAPHY GUIDED STEREOTACTIC GUIDED BIOPSY RIGHT BREAST WITH MARKING DEVICE IN SERTED AND POST DIGITAL MAMMOGRAPHIC IMAGING AND RADIOGRAPHIC SPECIMEN IMAGIN06/23/2020 CLINICAL: Right breast stereotactic biopsy. Microcalcifications right breast. Correlation is made to exams dated: 06/03/2020 mammogram, 10/15/2019 mammogram, 10/15/2019 ultrasound, 03/04/2019 mammogram, and 02/19/2019 mammogram - [facility]. A stereotactic guided biopsy was performed for the area of grouped and linear fine calcifications loc ated in the right breast at 6 o'clock middle depth. This was described on the previous mammography r eport. The skin was prepped in the usual manner. Local anesthetic was administered to the access si te. A small incision was made in the breast. The abnormality was approached from the craniocaudal a spect using an upright digital tomographic mammography unit. A 9 gauge biopsy needle was placed tess cent to the abnormality under computer guidance and confirmatory stereotactic mammography images were obtained to document needle placement. Once the needle was documented to be in the correct location , a specimen was obtained using an automated biopsy gun. A clip was inserted into the biopsy cavity. A skin closure strip and a sterile dressing were applied to the access site. Post procedure digita l mammographic imaging demonstrates the location device at the targeted area and partial removal of t he calcifications. The specimen was sent to the laboratory for pathological analysis. IMPRESSION: STEREOTACTIC GUIDED BIOPSY BENIGN Stereotactic guided biopsy of the area of grouped and linear fine calcifications in the right breast at 6 o'clock middle depth was successful. The imaged specimen includes the calcifications. Patholog y indicates benign fat necrosis (FN) and fibrofatty breast tissue. Pathology results are concordant with imaging findings. Return to screening mammography recommended. Results and recommendations will be communicated to the ordering provider's office. This exam was interpreted at Station ID: [id number]. Tray Jimenez M.D., jr,krg/:06/29/2020 14:56:54 BI-RADS CATEGORY: () - Unspecified - other recall n/a LATERALITY: (B)
== END 2020-06-23 08:47 | disposition home or self-care (01) ==
LOC: DI 08:46
PROVIDERS: ATTEND Internal Medicine
DX: R92.1 Mammographic calcification found on diagnostic imaging of breast (principal)
CPT/HCPCS: 19081

== ENCOUNTER 2020-10-22 07:17 | Outpatient (CLI) | payer MEDICARE, OTHER ==
[2020-10-22 15:11] LABS: BASOPHILS % (AUTO) 0.3 %; HGB - HEMOGLOBIN 12.5 g/dL (12.0-16.0); LYMPHOCYTES % (AUTO) 78.8 %; MEAN CORPUSCULAR HEMOGLOBIN 32.2 pg (27.0-31.0); MEAN CORPUSCULAR HGB CONC 32.1 g/dL (32.0-36.0); MEAN CORPUSCULAR VOLUME 100.3 fL (81.0-99.0); MONOCYTES % (AUTO) 2.4 %; NEUTROPHILS % (AUTO) 16.3 %; PLT - PLATELET COUNT 242 10^3/uL (130-450); RED BLOOD COUNT 3.88 10^6/uL (4.20-5.40); RED CELL DISTRIBUTION WIDTH 14.6 % (12.0-15.0); WHITE BLOOD COUNT 18.1 x10^3/uL (4.8-10.8)
[2020-10-22 15:12] LABS: BASOPHILS # (AUTO) 0.1 10^3/uL (0.0-0.1); EOSINOPHILS # (AUTO) 0.4 10^3/uL (0.0-0.7); LYMPHOCYTES # (AUTO) 14.3 10^3/uL (1.5-3.5); MONOCYTES # (AUTO) 0.4 10^3/uL (0.0-1.0); NEUTROPHILS # (AUTO) 2.9 10^3/uL (1.5-6.6); PLATELET ESTIMATE, MANUAL NORMAL (130-450,000) (NORMAL); PLATELET MORPHOLOGY NORMAL APPEARANCE (NORMAL); RBC MORPHOLOGY (MULTIPLE) NORMAL APPEARANCE (NORMAL)
[2020-10-22 15:18] LABS: ALBUMIN 4.2 g/dL (3.2-5.5); ALBUMIN/GLOBULIN RATIO 1.9 (1.0-2.2); ALKALINE PHOSPHATASE 77 IU/L (42-121); ALT ALANINE AMINOTRANSFERASE 18 IU/L (10-60); AST ASPARTATE AMINOTRANSFERASE 24 IU/L (10-42); BILIRUBIN,TOTAL 0.8 mg/dL (0.2-1.0); BUN - BLOOD UREA NITROGEN 16 mg/dL (6-20); CALCIUM 9.4 mg/dL (8.5-10.3); CARBON DIOXIDE - CO2 24 mmol/L (21-32); CHLORIDE 103 mmol/L (101-111); CHOL/HDL RATIO 1.7 (<4.4); CHOLESTEROL 172 mg/dL; CREATININE 0.8 mg/dL (0.4-1.0); GLUCOSE 93 mg/dL (70-100); HDL CHOLESTEROL 99 mg/dL; LDL CHOLESTEROL,CALCULATED 64 mg/dL; LDL/HDL RATIO 0.6 (<4.4); TOTAL PROTEIN 6.4 g/dL (6.7-8.2); VLDL CHOLESTEROL 9 mg/dL
[2020-10-22 15:25] LABS: CRP - C-REACTIVE PROTEIN < 1.0 mg/dL (0-1.0)
[2020-10-22 15:34] LABS: RHEUMATOID FACTOR NEGATIVE (Negative)
[2020-10-24 10:56] LABS: DNA (DS) ANTIBODY <1 IU/mL
[2020-10-24 20:42] LABS: CYCLIC CITRULL PEPTIDE CCP IGG <16 UNITS
[2020-10-25 03:21] LABS: ANA SCREEN POSITIVE (NEGATIVE)
== END 2020-10-22 07:18 | disposition home or self-care (01) ==
LOC: LAB.S 07:17
PROVIDERS: ATTEND Internal Medicine
DX: I10 Essential (primary) hypertension (principal); E03.9 Hypothyroidism, unspecified; M25.541 Pain in joints of right hand; M19.049 Primary osteoarthritis, unspecified hand
CPT/HCPCS: 36415; 80053; 80061; 83721; 84443; 84550; 85025; 85651; 86038; 86140; 86200; 86225; 86430

== ENCOUNTER 2021-05-06 07:37 | Outpatient (CLI) | payer MEDICARE, OTHER ==
[2021-05-06 15:03] LABS: BASOPHILS % (AUTO) 0.3 %; EOSINOPHILS % (AUTO) 1.1 %; HCT - HEMATOCRIT 40.7 % (37.0-47.0); HGB - HEMOGLOBIN 13.7 g/dL (12.0-16.0); LYMPHOCYTES % (AUTO) 82.8 %; MEAN CORPUSCULAR HEMOGLOBIN 32.4 pg (27.0-31.0); MEAN CORPUSCULAR HGB CONC 33.7 g/dL (32.0-36.0); MEAN CORPUSCULAR VOLUME 96.2 fL (81.0-99.0); MEAN PLATELET VOLUME 11.4 fL (7.9-10.8); MONOCYTES % (AUTO) 2.3 %; NEUTROPHILS % (AUTO) 13.3 %; PLT - PLATELET COUNT 255 10^3/uL (130-450); RED BLOOD COUNT 4.23 10^6/uL (4.20-5.40); RED CELL DISTRIBUTION WIDTH 13.9 % (12.0-15.0); WHITE BLOOD COUNT 23.5 x10^3/uL (4.8-10.8)
[2021-05-06 15:17] LABS: ABNORMAL LYMPHS % (MANUAL) 0 %; BAND NEUTROPHILS % (MANUAL) 0 %
[2021-05-06 15:27] LABS: ALBUMIN 4.2 g/dL (3.2-5.5); ALBUMIN/GLOBULIN RATIO 1.8 (1.0-2.2); ALKALINE PHOSPHATASE 88 IU/L (42-121); ALT ALANINE AMINOTRANSFERASE 23 IU/L (10-60); AST ASPARTATE AMINOTRANSFERASE 27 IU/L (10-42); BILIRUBIN,TOTAL 0.7 mg/dL (0.2-1.0); BUN - BLOOD UREA NITROGEN 15 mg/dL (6-20); CALCIUM 9.4 mg/dL (8.5-10.3); CARBON DIOXIDE - CO2 23 mmol/L (21-32); CHLORIDE 99 mmol/L (101-111); CHOL/HDL RATIO 1.8 (<4.4); CHOLESTEROL 177 mg/dL; CREATININE 0.7 mg/dL (0.4-1.0); GFR - MDRD 82 (>89); GLUCOSE 91 mg/dL (70-100); HDL CHOLESTEROL 96 mg/dL; LDL CHOLESTEROL,CALCULATED 70 mg/dL; LDL/HDL RATIO 0.7 (<4.4); POTASSIUM 4.1 mmol/L (3.5-5.0); SODIUM 132 mmol/L (135-145); TOTAL PROTEIN 6.6 g/dL (6.7-8.2); TRIGLYCERIDES 54 mg/dL; VLDL CHOLESTEROL 11 mg/dL
[2021-05-06 15:36] LABS: DIFFERENTIAL COMMENT MANUAL DIFFERENTIAL; EOSINOPHILS # (MANUAL) 0.2 10^3/uL (0-0.7); LYMPHOCYTES # (MANUAL) 19.7 10^3/uL (1.5-3.5); LYMPHOCYTES % (MANUAL) 84 %; MONOCYTES # (MANUAL) 0.7 10^3/uL (0.0-1.0); NEUTROPHILS # (MANUAL) 2.8 10^3/uL (1.5-6.6); PLATELET ESTIMATE, MANUAL NORMAL (130-450,000) (NORMAL); PLATELET MORPHOLOGY NORMAL APPEARANCE (NORMAL); RBC MORPHOLOGY (MULTIPLE) NORMAL APPEARANCE (NORMAL); WBC MORPHOLOGY (MULTIPLE) NORMAL APPEARANCE (NORMAL)
[2021-05-06 15:41] LABS: THYROID STIMULATING HORMONE 1.63 uIU/mL (0.34-5.60)
== END 2021-05-06 07:38 | disposition home or self-care (01) ==
LOC: LAB.S 07:37
PROVIDERS: ATTEND Internal Medicine
DX: I10 Essential (primary) hypertension (principal); E78.5 Hyperlipidemia, unspecified; E03.9 Hypothyroidism, unspecified
CPT/HCPCS: 36415; 80053; 80061; 83721; 84443; 85025

== ENCOUNTER 2021-05-18 09:40 | Outpatient (CLI) | payer MEDICARE, OTHER ==
[2021-05-18 15:29] LABS: ALBUMIN 4.1 g/dL (3.2-5.5); ALBUMIN/GLOBULIN RATIO 1.7 (1.0-2.2); BILIRUBIN,TOTAL 0.7 mg/dL (0.2-1.0); CALCIUM 9.5 mg/dL (8.5-10.3); CREATININE 0.7 mg/dL (0.4-1.0); TOTAL PROTEIN 6.5 g/dL (6.7-8.2)
[2021-05-18 20:22] LABS: ESTIMATED AVERAGE GLUCOSE 120 mg/dL (70-100); HEMOGLOBIN A1c% 5.8 % (4.27-6.07)
[2021-05-24 11:21] LABS: HDL LARGE 11613 nmol/L (>6729); LDL MEDIUM 168 nmol/L (<215); LDL PARTICLE NUMBER 948 nmol/L (<1138); LDL PATTERN A Pattern (A); LDL PEAK SIZE 222.3 Angstrom (>222.9); LDL SMALL 148 nmol/L (<142)
== END 2021-05-18 09:41 | disposition home or self-care (01) ==
LOC: LAB.S 09:40
PROVIDERS: ATTEND Internal Medicine Cardiovascular Disease
DX: E78.5 Hyperlipidemia, unspecified (principal); R73.9 Hyperglycemia, unspecified; I10 Essential (primary) hypertension
CPT/HCPCS: 36415; 80053; 80061; 81599; 82088; 82550; 83036; 83704; 84244

== ENCOUNTER 2021-07-15 11:34 | Outpatient (CLI) | payer MEDICARE, OTHER ==
[2021-07-15 15:28] LABS: CALCIUM 9.7 mg/dL (8.5-10.3); CREATININE 0.8 mg/dL (0.4-1.0); POTASSIUM 4.1 mmol/L (3.5-5.0)
== END 2021-07-15 11:35 | disposition home or self-care (01) ==
LOC: LAB.S 11:34
PROVIDERS: ATTEND Internal Medicine Cardiovascular Disease
DX: E87.1 Hypo-osmolality and hyponatremia (principal)
CPT/HCPCS: 36415; 80048

== ENCOUNTER 2021-09-08 11:49 | Outpatient (CLI) | payer MEDICARE, OTHER ==
[2021-09-08 14:37] LABS: CALCIUM 9.6 mg/dL (8.5-10.3); CREATININE 0.8 mg/dL (0.4-1.0)
== END 2021-09-08 11:50 | disposition home or self-care (01) ==
LOC: LAB.S 11:49
PROVIDERS: ATTEND Internal Medicine Cardiovascular Disease
DX: I10 Essential (primary) hypertension (principal); R79.89 Other specified abnormal findings of blood chemistry
CPT/HCPCS: 36415; 80048

== ENCOUNTER 2021-11-05 14:12 | Outpatient (CLI) | payer MEDICARE, OTHER ==
[2021-11-05 20:13] LABS: BASOPHILS # (AUTO) 0.1 10^3/uL (0.0-0.1); BASOPHILS % (AUTO) 0.3 %; EOSINOPHILS # (AUTO) 0.2 10^3/uL (0.0-0.7); HCT - HEMATOCRIT 36.9 % (37.0-47.0); HGB - HEMOGLOBIN 12.3 g/dL (12.0-16.0); LYMPHOCYTES # (AUTO) 13.3 10^3/uL (1.5-3.5); LYMPHOCYTES % (AUTO) 71.5 %; MEAN CORPUSCULAR HEMOGLOBIN 31.9 pg (27.0-31.0); MEAN CORPUSCULAR HGB CONC 33.3 g/dL (32.0-36.0); MEAN CORPUSCULAR VOLUME 95.6 fL (81.0-99.0); MEAN PLATELET VOLUME 11.3 fL (7.9-10.8); MONOCYTES # (AUTO) 0.6 10^3/uL (0.0-1.0); MONOCYTES % (AUTO) 3.4 %; NEUTROPHILS # (AUTO) 4.4 10^3/uL (1.5-6.6); NEUTROPHILS % (AUTO) 23.7 %; PLT - PLATELET COUNT 242 10^3/uL (130-450); RED BLOOD COUNT 3.86 10^6/uL (4.20-5.40); RED CELL DISTRIBUTION WIDTH 14.9 % (12.0-15.0); WHITE BLOOD COUNT 18.6 x10^3/uL (4.8-10.8)
[2021-11-05 20:15] LABS: SLIDE REVIEW? Indicated
[2021-11-05 20:24] LABS: ALBUMIN/GLOBULIN RATIO 1.8 (1.0-2.2); BILIRUBIN,TOTAL 0.3 mg/dL (0.2-1.0); CALCIUM 9.4 mg/dL (8.5-10.3); CREATININE 0.8 mg/dL (0.4-1.0); POTASSIUM 3.8 mmol/L (3.5-5.0); TOTAL PROTEIN 6.2 g/dL (6.7-8.2)
[2021-11-05 20:42] LABS: THYROID STIMULATING HORMONE 0.81 uIU/mL (0.34-5.60)
[2021-11-05 21:36] LABS: DIFFERENTIAL COMMENT MANUAL=AUTO DIFF; PLATELET ESTIMATE, MANUAL NORMAL (130-450,000) (NORMAL); PLATELET MORPHOLOGY NORMAL APPEARANCE (NORMAL); RBC MORPHOLOGY (MULTIPLE) NORMAL APPEARANCE (NORMAL); WBC MORPHOLOGY (MULTIPLE) 2+ SMUDGE CELLS (NORMAL)
== END 2021-11-05 14:13 | disposition home or self-care (01) ==
LOC: LAB.S 14:12
PROVIDERS: ATTEND Internal Medicine
DX: I10 Essential (primary) hypertension (principal); E03.9 Hypothyroidism, unspecified
CPT/HCPCS: 36415; 80053; 84443; 85025

== ENCOUNTER 2022-03-28 08:00 | Outpatient (CLI) | payer MEDICARE, OTHER ==
--- NOTE | 2022-03-28 16:44 | XRAY Report ---
PROCEDURE: Foot 2 View RT INDICATIONS: SPRAIN OF RIGHT TOES TECHNIQUE: 2 views of the foot were acquired. COMPARISON: None FINDINGS: Bones: Nondisplaced fracture of the second proximal phalange. No suspicious bony lesions. First MTP j oint osteoarthritis. Small calcaneal bone spur. Soft tissues: No tibiotalar joint effusion. Achilles tendon appears normal. Medial bunion. IMPRESSION: Second proximal phalange fracture. Reviewed by: Daria Saleem MD, PhD on 03/28/2022 4:42 PM PDT Approved by: Daria Saleem MD, PhD on 03/28/2022 4:42 PM PDT Station ID: [id number]
== END 2022-03-28 23:59 | disposition home or self-care (01) ==
LOC: DI.S 08:00
PROVIDERS: ATTEND Registered Nurse
DX: S92.511A Displaced fracture of proximal phalanx of right lesser toe(s), initial encounter for closed fracture (principal)

== ENCOUNTER 2023-02-22 08:00 | Outpatient (CLI) | payer MEDICARE, OTHER ==
--- NOTE | 2023-02-22 14:50 | XRAY Report ---
PROCEDURE: Hand 3 View RT INDICATIONS: CONTUSION OF RIGHT HAND TECHNIQUE: 3 views of the hand(s) acquired. COMPARISON: None. FINDINGS: Bones: No acute fracture. No dislocations. Interphalangeal joint space narrowing and osteophytosis. Irregularity most pronounced at the second digit DIP joint and third digit PIP joint. Degenerative c hange at the first CMC joint. No suspicious bony lesions. Soft tissues: No suspicious soft tissue calcifications or masses. IMPRESSION: No acute fracture demonstrated. 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 Reviewed by: Abdelrahman Gagnon MD on 02/22/2023 2:49 PM PDT Approved by: Abdelrahman Gagnon MD on 02/22/2023 2:49 PM PDT Station ID: [id number]
== END 2023-02-22 23:59 | disposition home or self-care (01) ==
LOC: DI.S 08:00
PROVIDERS: ATTEND Emergency Medicine
DX: S60.221A Contusion of right hand, initial encounter (principal); M19.041 Primary osteoarthritis, right hand

== ENCOUNTER 2023-03-22 07:28 | Outpatient (CLI) | payer MEDICARE, OTHER ==
[2023-03-22 15:04] LABS: BASOPHILS % (AUTO) 0.3 %; HCT - HEMATOCRIT 40.6 % (37.0-47.0); LYMPHOCYTES % (AUTO) 79.8 %; MEAN CORPUSCULAR HEMOGLOBIN 31.6 pg (27.0-31.0); MEAN CORPUSCULAR VOLUME 98.8 fL (81.0-99.0); MEAN PLATELET VOLUME 11.6 fL (7.9-10.8); MONOCYTES % (AUTO) 3.4 %; NEUTROPHILS % (AUTO) 15.4 %; PLT - PLATELET COUNT 225 10^3/uL (130-450); RED BLOOD COUNT 4.11 10^6/uL (4.20-5.40); WHITE BLOOD COUNT 19.8 x10^3/uL (4.8-10.8)
[2023-03-22 15:09] LABS: ABNORMAL LYMPHS % (MANUAL) 0 %; BAND NEUTROPHILS % (MANUAL) 0 %
[2023-03-22 15:24] LABS: ALBUMIN 4.3 g/dL (3.2-5.5); ALKALINE PHOSPHATASE 85 IU/L (42-121); ALT ALANINE AMINOTRANSFERASE 20 IU/L (10-60); AST ASPARTATE AMINOTRANSFERASE 26 IU/L (10-42); BILIRUBIN,TOTAL 0.7 mg/dL (0.2-1.0); BUN - BLOOD UREA NITROGEN 20 mg/dL (6-20); CALCIUM 9.6 mg/dL (8.5-10.3); CARBON DIOXIDE - CO2 25 mmol/L (21-32); CHLORIDE 107 mmol/L (101-111); CHOL/HDL RATIO 1.8 (<4.4); CHOLESTEROL 158 mg/dL; CREATININE 0.8 mg/dL (0.6-1.3); GFR - MDRD 70 (>89); GLUCOSE 82 mg/dL (74-104); HDL CHOLESTEROL 86 mg/dL; LDL CHOLESTEROL,CALCULATED 61 mg/dL; LDL/HDL RATIO 0.7 (<4.4); POTASSIUM 4.1 mmol/L (3.5-4.5); SODIUM 138 mmol/L (135-145); TOTAL PROTEIN 6.5 g/dL (6.4-8.9); TRIGLYCERIDES 56 mg/dL (48-352); VLDL CHOLESTEROL 11 mg/dL
[2023-03-22 15:25] LABS: THYROID STIMULATING HORMONE 1.59 uIU/mL (0.34-5.60)
[2023-03-22 15:52] LABS: DIFFERENTIAL COMMENT MANUAL DIFFERENTIAL; EOSINOPHILS # (MANUAL) 0.4 10^3/uL (0-0.7); LYMPHOCYTES # (MANUAL) 15.6 10^3/uL (1.5-3.5); LYMPHOCYTES % (MANUAL) 79 %; MONOCYTES # (MANUAL) 0.2 10^3/uL (0.0-1.0); NEUTROPHILS # (MANUAL) 3.6 10^3/uL (1.5-6.6); PLATELET ESTIMATE, MANUAL NORMAL (130-450,000) (NORMAL); PLATELET MORPHOLOGY NORMAL APPEARANCE (NORMAL); RBC MORPHOLOGY (MULTIPLE) NORMAL APPEARANCE (NORMAL)
== END 2023-03-22 07:29 | disposition home or self-care (01) ==
LOC: LAB.S 07:28
PROVIDERS: ATTEND Registered Nurse
DX: E78.5 Hyperlipidemia, unspecified (principal); Z79.899 Other long term (current) drug therapy; E03.9 Hypothyroidism, unspecified
CPT/HCPCS: 36415; 80053; 80061; 83721; 84443; 85025

== ENCOUNTER 2023-04-18 13:15 | Outpatient (CLI) | payer MEDICARE, OTHER ==
--- NOTE | 2023-04-19 09:27 | Mammography Report ---
BILATERAL DIGITAL SCREENING MAMMOGRAM 3D/2D: 04/18/2023 CLINICAL: Routine screening. Personal history of right breast cancer. Comparison is made to exams dated: 03/04/2019 ultrasound, 02/19/2019 mammogram, and 12/26/2017 mammogram - [facility]. There are scattered areas of fibroglandular density in both breasts (category b / 25%-50% glandular t issue). There are benign post operative findings and biopsy clip in the right breast. No significant masses, calcifications, or other findings are seen in either breast. There has been no significant interval change. IMPRESSION: BENIGN There is no mammographic evidence of malignancy. A 1 year screening mammogram is recommended. This exam was interpreted at Station ID: [id number]. NOTE: For mammograms, a report in lay terms will be sent to the patient. Approximately 15% of breast malignancies will not be visualized mammographically. In the management of a palpable breast mass, a negative mammogram must not discourage biopsy of a clinically suspicious lesion. Electronically Signed By: Eva pascal/chelsey:04/19/2023 08:14:14 letter sent: No_Letter ACR BI-RADS Category 2: Benign Finding(s) 3342F PARENCHYMAL PATTERN: (A) - The breast(s) demonstrate(s) scattered fibroglandular densities. BI-RADS CATEGORY: (2) - 2 Mammogram [id number] 1 year screening LATERALITY: (B)
== END 2023-04-18 13:16 | disposition home or self-care (01) ==
LOC: DI.S 13:15
PROVIDERS: ATTEND Registered Nurse
DX: Z12.31 Encounter for screening mammogram for malignant neoplasm of breast (principal); Z85.3 Personal history of malignant neoplasm of breast

== ENCOUNTER 2023-07-18 07:18 | Outpatient (CLI) | payer MEDICARE, OTHER ==
[2023-07-18 16:11] LABS: BUN - BLOOD UREA NITROGEN 15 mg/dL (6-20); CALCIUM 9.8 mg/dL (8.5-10.3); CARBON DIOXIDE - CO2 28 mmol/L (21-32); CHLORIDE 106 mmol/L (101-111); CHOL/HDL RATIO 2.6 (<4.4); CHOLESTEROL 214 mg/dL; CREATININE 0.8 mg/dL (0.6-1.3); GFR - MDRD 70 (>89); GLUCOSE 82 mg/dL (74-104); HDL CHOLESTEROL 82 mg/dL; LDL CHOLESTEROL,CALCULATED 120 mg/dL; LDL/HDL RATIO 1.5 (<4.4); POTASSIUM 4.4 mmol/L (3.5-4.5); SODIUM 137 mmol/L (135-145); TRIGLYCERIDES 62 mg/dL (48-352); VLDL CHOLESTEROL 12 mg/dL
== END 2023-07-18 07:19 | disposition home or self-care (01) ==
LOC: LAB.S 07:18
PROVIDERS: ATTEND Internal Medicine Cardiovascular Disease
DX: I10 Essential (primary) hypertension (principal); E78.00 Pure hypercholesterolemia, unspecified
CPT/HCPCS: 36415; 80048; 80061; 83721

== ENCOUNTER 2024-03-08 07:35 | Outpatient (CLI) | payer MEDICARE, OTHER ==
[2024-03-08 15:45] LABS: BASOPHILS % (AUTO) 0.2 %; EOSINOPHILS % (AUTO) 1.7 %; HCT - HEMATOCRIT 40.7 % (37.0-47.0); HGB - HEMOGLOBIN 13.4 g/dL (12.0-16.0); LYMPHOCYTES % (AUTO) 77.2 %; MEAN CORPUSCULAR HEMOGLOBIN 32.9 pg (27.0-31.0); MEAN CORPUSCULAR HGB CONC 32.9 g/dL (32.0-36.0); MEAN PLATELET VOLUME 11.1 fL (7.9-10.8); MONOCYTES % (AUTO) 3.1 %; NEUTROPHILS % (AUTO) 17.7 %; PLT - PLATELET COUNT 236 10^3/uL (130-450); RED BLOOD COUNT 4.07 10^6/uL (4.20-5.40); RED CELL DISTRIBUTION WIDTH 14.4 % (12.0-15.0); WHITE BLOOD COUNT 19.3 x10^3/uL (4.8-10.8)
[2024-03-08 15:57] LABS: ABNORMAL LYMPHS % (MANUAL) 0 %; BAND NEUTROPHILS % (MANUAL) 0 %
[2024-03-08 16:17] LABS: THYROID STIMULATING HORMONE 2.12 uIU/mL (0.34-5.60)
[2024-03-08 16:19] LABS: ALBUMIN 4.3 g/dL (3.2-5.5); ALBUMIN/GLOBULIN RATIO 1.7 (1.0-2.2); BILIRUBIN,TOTAL 0.5 mg/dL (0.2-1.0); CALCIUM 9.7 mg/dL (8.5-10.3); CREATININE 0.7 mg/dL (0.6-1.3); POTASSIUM 4.2 mmol/L (3.5-4.5); TOTAL PROTEIN 6.8 g/dL (6.4-8.9)
[2024-03-08 16:44] LABS: EOSINOPHILS # (MANUAL) 0.6 10^3/uL (0-0.7); LYMPHOCYTES # (MANUAL) 13.7 10^3/uL (1.5-3.5); LYMPHOCYTES % (MANUAL) 25 %; MONOCYTES # (MANUAL) 0.2 10^3/uL (0.0-1.0); NEUTROPHILS # (MANUAL) 4.8 10^3/uL (1.5-6.6); REACTIVE LYMPHS % (MANUAL) 46 %
[2024-03-08 16:45] LABS: DIFFERENTIAL COMMENT MANUAL DIFFERENTIAL; PLATELET ESTIMATE, MANUAL NORMAL (130-450,000) (NORMAL); PLATELET MORPHOLOGY NORMAL APPEARANCE (NORMAL); RBC MORPHOLOGY (MULTIPLE) NORMAL APPEARANCE (NORMAL)
== END 2024-03-08 07:36 | disposition home or self-care (01) ==
LOC: LAB.S 07:35
PROVIDERS: ATTEND Registered Nurse
DX: E03.9 Hypothyroidism, unspecified (principal); Z13.228 Encounter for screening for other metabolic disorders; Z13.0 Encounter for screening for diseases of the blood and blood-forming organs and certain disorders involving the immune mechanism
CPT/HCPCS: 36415; 80053; 84443; 85025

== ENCOUNTER 2024-05-21 07:58 | Outpatient (CLI) | payer MEDICARE, OTHER ==
--- NOTE | 2024-05-22 11:01 | Mammography Report ---
BILATERAL DIGITAL SCREENING MAMMOGRAM 3D/2D: 05/21/2024 CLINICAL: Routine screening. Family history of breast cancer. Personal history of right breast cancer . Comparison is made to exams dated: 04/18/2023 mammogram, 10/15/2019 mammogram, 03/04/2019 mammogram, and 06/03/2020 mammogram - [facility]. There are scattered areas of fibroglandular density (category b / 25%-50% glandular tissue). There are benign post operative findings and biopsy clip in the right breast. No significant masses, calcifications, or other findings are seen in either breast. There has been no significant interval change. IMPRESSION: BENIGN There is no mammographic evidence of malignancy. A 1 year screening mammogram is recommended. This exam was interpreted at Station ID: [id number]. NOTE: For mammograms, a report in lay terms will be sent to the patient. Approximately 15% of breast malignancies will not be visualized mammographically. In the management of a palpable breast mass, a negative mammogram must not discourage biopsy of a clinically suspicious lesion. Electronically Signed By: Abdelrahman Gagnon M.D. [facility]:05/21/2024 12:07:50 ACR BI-RADS Category 2: Benign PARENCHYMAL PATTERN: (A) - The breast(s) demonstrate(s) scattered fibroglandular densities. BI-RADS CATEGORY: (2) - 2 RECOMMENDATION: (ANNUAL) - Recommend routine annual screening mammography. [id number] 1 year screening LATERALITY: (B)
== END 2024-05-21 07:59 | disposition home or self-care (01) ==
LOC: DI.S 07:58
PROVIDERS: ATTEND Registered Nurse
DX: Z12.31 Encounter for screening mammogram for malignant neoplasm of breast (principal); Z85.3 Personal history of malignant neoplasm of breast; Z80.3 Family history of malignant neoplasm of breast